=== PATIENT | male | born 1965 ===

== ENCOUNTER 2024-08-16 06:57 | Inpatient (IN) | payer OTHER ==
[~2024-08-16] VITALS: Ht 170.2 cm; Wt 105.2 kg
[2024-08-16 07:49] VITALS: BP 168/84
[2024-08-16 07:56] LABS: HEMATOCRIT 45.4 % (39.0-48.0); HEMOGLOBIN 14.9 g/dL (13-16.00); MEAN CELL VOLUME 92.3 fL (80.0-100.00); MEAN CORPUSCULAR HEMOGLOBIN 30.3 pg (27.00-32.0); MEAN CORPUSCULAR HGB CONC 32.9 g/dl (32.0-36.0); PH,URINE 6.5 (5.0-8.0); PLATELET COUNT 140 K/uL (150-450); RED BLOOD COUNT 4.92 M/uL (4.00-6.00); RED CELL DISTRIBUTION WIDTH 14.6 % (11.5-14.5); URINE APPEARANCE Clear; URINE BILIRRUBIN Negative (NEGATIVE); URINE BLOOD Negative; URINE COLOR Yellow; URINE KETONE Negative (NEGATIVE); URINE LEUKOCYTE Negative; URINE NITRATE Negative; URINE PROTEIN Trace (NEGATIVE)
[2024-08-16 08:00] LABS: URINE BACTERIA 6.1 uL (0.0-1933); URINE EPITHELIAL CELLS 2.6 uL (0.0-38.8); URINE WBC 3.7 uL (0.0-23.2)
[2024-08-16 08:09] LABS: URINE CAST 0.29 uL (0.0-1.40); URINE GLUCOSE 100 MG/DL (NEGATIVE); URINE RBC 1.6 uL (0.0-20.8)
[2024-08-16 08:12] LABS: INR 1.02; PARTIAL THROMBOPLASTIN TIME 26.3 SECONDS (22.0-34.0); PROTHROMBIN TIME 11.1 SECONDS (9.0-11.5)
[2024-08-16 08:27] LABS: COVID-19 AG NEGATIVE (NEGATIVE)
[2024-08-16 08:51] LABS: CALCIUM 9.3 mg/dL (8.5-10.1); CREATININE SERUM 0.75 mg/dL (0.70-1.30); GFR 106.23; POTASSIUM 4.05 mEq/L (3.5-5.1)
[2024-08-16] MEDS ORDERED: GABAPENTIN800 MG (09:22)
[2024-08-16] MEDS ORDERED: TAMS0.4C PO (09:23)
[2024-08-16] MEDS ORDERED: SINGULAIR10 MG PO (09:23)
[2024-08-16] MEDS ORDERED: PROSCAR5 MG PO (09:24)
[2024-08-16] MEDS ORDERED: CARVEDILOL6.25 MG (09:25)
[2024-08-16] MEDS ORDERED: AVAPRO300 MG PO (09:26)
[2024-08-16] MEDS ORDERED: NORVASC2.5 MG PO (09:27)
[2024-08-16] MEDS ORDERED: ECOTRIN81 MG PO (09:27)
[2024-08-16] MEDS ORDERED: PEPCID AC20 MG (09:27)
[2024-08-16] MEDS ORDERED: PROTONIX40 MG PO (09:28)
[2024-08-16] MEDS ORDERED: FARXIGA10 MG PO (09:28)
[2024-08-16] MEDS ORDERED: GLIMEPIRIDE4 MG (09:29)
[2024-08-16] MEDS ORDERED: JANUMET XR 50-1 EAC1 PO (09:29)
[2024-08-16 10:07] LABS: RH NEGATIVE
[2024-08-22] MEDS ORDERED: CEFAZOLIN SODIUM 1,000 MG VIAL ONE (07:11)
[2024-08-22] MEDS ORDERED: HEMOSTATIC MATRIX 1 KIT KIT TOP ONE (07:11)
[2024-08-22] MEDS ORDERED: ENOXAPARIN SODIUM 40 MG/0.4 ML SYRINGE SUBCUTANEO ONE (07:11)
[2024-08-22] MEDS ORDERED: SURGIFLO APPLICATOR 1 EACH APPL TOP ONE (07:14)
[2024-08-22] MEDS ORDERED: BUPIVACAINE HCL 30 ML VIAL IJ ONE (09:00)
[2024-08-22] MEDS ORDERED: SUGAMMADEX SODIUM 200 MG/2 ML VIAL IV ONE (12:19)
[2024-08-22] MEDS ORDERED: OxyCODONE HCL/APAP UD (PERCOCET) PO PRN (12:30)
[2024-08-22] MEDS ORDERED: RINGERS SOLUTION,LACTATED 1,000 ML IV SCH (12:30)
[2024-08-22] MEDS ORDERED: ONDANSETRON HCL 2 MG/ML VIAL IV PRN (12:30)
[2024-08-22] MEDS ORDERED: MORPHINE SULFATE 4 MG/ML CARTRIDGE IV PRN (12:30)
[2024-08-22] MEDS ORDERED: DEXTROSE 50 % IN WATER 0.5 G/ML VIAL IV PRN (12:45)
[2024-08-22] MEDS ORDERED: INSULIN LISPRO 1,000 UNIT/10 ML UNITS SUBCUTANEO PRN (12:45)
[2024-08-22] MEDS ORDERED: MORPHINE SULFATE 4 MG/ML VIAL IV ONE ×3 (13:05→15:40)
[2024-08-22] MEDS ORDERED: ENALAPRILAT DIHYDRATE 1.25 MG/ML VIAL IV ONE ×3 (13:13→16:30)
[2024-08-22] MEDS ORDERED: GABAPENTIN 300 MG CAPSULE PO SCH (17:00)
[2024-08-22] MEDS ORDERED: POLYETHYLENE GLYCOL 3350 17 GM BLIST.PACK PO SCH (17:00)
[2024-08-22 19:03] VITALS: BP 143/88; O2SAT 93
[2024-08-22] MEDS ORDERED: FAMOTIDINE/PF 20 MG/2 ML VIAL IV SCH (21:00)
[2024-08-22] MEDS ORDERED: CEFAZOLIN SODIUM 1,000 MG VIAL IV SCH (21:00)
[2024-08-23 01:32] VITALS: BP 144/77; O2SAT 100
[2024-08-23 08:00] VITALS: BP 136/82; O2SAT 96
[2024-08-23 08:21] LABS: HEMOGLOBIN 13.7 g/dL (13-16.00); MEAN CELL VOLUME 91.9 fL (80.0-100.00); MEAN CORPUSCULAR HEMOGLOBIN 30.6 pg (27.00-32.0); MEAN CORPUSCULAR HGB CONC 33.3 g/dl (32.0-36.0); PLATELET COUNT 146 K/uL (150-450); RED BLOOD COUNT 4.46 M/uL (4.00-6.00); RED CELL DISTRIBUTION WIDTH 14.8 % (11.5-14.5)
[2024-08-23 08:57] LABS: ALBUMIN 3.5 gm/dL (3.4-5.0); CALCIUM 8.7 mg/dL (8.5-10.1); CREATININE SERUM 0.88 mg/dL (0.70-1.30); GFR 88.33; PHOSPHOROUS 2.6 mg/dL (2.5-4.9); POTASSIUM 4.01 mEq/L (3.5-5.1)
[2024-08-23] MEDS ORDERED: CARVEDILOL 6.25 MG TABLET PO SCH (09:00)
[2024-08-23] MEDS ORDERED: MONTELUKAST SODIUM 10 MG TABLET PO SCH (09:00)
[2024-08-23] MEDS ORDERED: AMLODIPINE BESYLATE 2.5 MG TABLET PO SCH (09:00)
[2024-08-23] MEDS ORDERED: IRBESARTAN 300 MG TABLET PO SCH (09:00)
[2024-08-23] MEDS ORDERED: ENOXAPARIN SODIUM 40 MG/0.4 ML SYRINGE SUBCUTANEO SCH (09:00)
== END 2024-08-23 13:18 | disposition home or self-care (01) | DRG 708 ==
LOC: O/R 08-22 05:09 → SURH 08-22 07:00
PROVIDERS: ADMIT Urology; ATTEND Urology
PROC: 8E0W4CZ Robotic Assisted Procedure of Trunk Region, Percutaneous Endoscopic Approach (ICD-10-PCS; 2024-08-22)
PROC: 0VT04ZZ Resection of Prostate, Percutaneous Endoscopic Approach (ICD-10-PCS; principal; 2024-08-22 07:00)
DX: C61 Malignant neoplasm of prostate (principal)
CPT/HCPCS: 55866; S2900

== ENCOUNTER 2024-08-31 07:29 | Outpatient (CLI) | payer OTHER ==
[~2024-08-31 07:29] MED LIST: AVAPRO300 MG PO; CARVEDILOL6.25 MG; ECOTRIN81 MG PO; FARXIGA10 MG PO; GABAPENTIN800 MG; GLIMEPIRIDE4 MG; JANUMET XR 50-1 EAC1 PO; NORVASC2.5 MG PO; PEPCID AC20 MG; PROSCAR5 MG PO; PROTONIX40 MG PO; SINGULAIR10 MG PO; TAMS0.4C PO
== END 2024-08-31 07:31 | disposition home or self-care (01) ==
LOC: TOM 07:29
PROVIDERS: ATTEND Urology
DX: C61 Malignant neoplasm of prostate (principal)
CPT/HCPCS: 72194; Q9965